=== PATIENT | female | born 1935 | race Caucasian/White ===

== ENCOUNTER 2017-05-31 18:36 | Emergency (ER) | payer MEDICARE, OTHER ==
[~2017-05-31] VITALS: Ht 160 cm; Wt 75.0 kg
[~2017-05-31 18:36] MED LIST: ASPI-99 PO; COUM5TAB PO; DIVA250T8 PO; HYDR-2768 PO; HYDR10TA16 PO; METO50CR PO; STOO100C PO; WARF7.5 PO; ZYRT10TA12 PO
[2017-05-31 18:57] VITALS: BP 209/101; PULSE 59; RESP 16; TEMP 97.8; O2SAT 97
[2017-05-31] MEDS ORDERED: SODIUM CHLOR 0.9% 1000 ML INJ 1,000 ML IV SCH (19:05)
[2017-05-31] MEDS ORDERED: METO50TA11 PO (19:06)
[2017-05-31] MEDS ORDERED: POTA-163 PO (19:06)
[2017-05-31] MEDS ORDERED: COUM7.5T PO (19:06)
[2017-05-31] MEDS ORDERED: FURO1TAB62 PO (19:06)
[2017-05-31] MEDS ORDERED: ASPI81CH CHEW (19:06)
[2017-05-31] MEDS ORDERED: SODIUM CHLORIDE 0.9% FLUSH 10 ML FLUSH IV FLUSH PRN (19:15)
[2017-05-31] MEDS ORDERED: ONDANSETRON HCL 4 MG/2 ML VIAL IVP ONE (19:15)
[2017-05-31 19:41] LABS: AUTOMATED NEUTROPHIL # 6.8 TH/MM3 (1.8-7.7); BASOPHIL % 0.5 % (0.0-2.0); EOSINOPHIL # 0.2 TH/MM3 (0-0.4); EOSINOPHIL % 2.1 % (0.0-4.0); HEMATOCRIT 41.2 % (35.0-46.0); HEMO FLAGS DIFF FINAL; LYMPH % 15.8 % (9.0-44.0); LYMPHOCYTE # 1.4 TH/MM3 (1.0-4.8); MEAN CELL VOLUME 89.2 FL (80.0-100.0); MEAN CORPUSCULAR HEMOGLOBIN 29.6 PG (27.0-34.0); MEAN CORPUSCULAR HGB CONC 33.2 % (32.0-36.0); NEUT % 75.6 % (16.0-70.0); PLATELET COUNT 169 TH/MM3 (150-450); RED BLOOD COUNT 4.62 MIL/MM3 (4.00-5.30); RED CELL DISTRIBUTION WIDTH 14.1 % (11.6-17.2)
[2017-05-31 19:49] LABS: APTT (PATIENT) 34.3 SEC (24.3-30.1); INTERNATIONAL NORMALIZED RATIO 2.8 RATIO; PROTHROMBIN TIME - PATIENT 32.7 SEC (9.8-11.6)
[2017-05-31 20:01] LABS: ALT (GPT) 31 U/L (10-53); ANION GAP 11 MEQ/L (5-15); AST (GOT) 30 U/L (15-37); BICARBONATE 25.3 MEQ/L (21.0-32.0); BLOOD UREA NITROGEN 15 MG/DL (7-18); CHLORIDE 108 MEQ/L (98-107); GLOMERULAR FILTRATION RATE 92 ML/MIN (>89); POTASSIUM 3.2 MEQ/L (3.5-5.1); SODIUM (NA) 144 MEQ/L (136-145)
[2017-05-31 20:05] LABS: ALKALINE PHOSPHATASE 68 U/L (45-117); TOTAL BILIRUBIN ADULT 0.6 MG/DL (0.2-1.0)
--- NOTE | 2017-05-31 20:08 | PD ---
HPI Chief Complaint: Dizziness Time Seen by Provider: 18:58 Travel History International Travel<30 days: No Contact w/Intl Traveler<30days: No Traveled to known affect area: No History of Present Illness HPI 81-year-old female with history of mechanical mitral heart valve, hypertension, here for evaluation of sudden onset dizziness. The patient reports that she was preparing dinner when she became dizzy at around 5:30 PM today. Dizziness worse with opening her eyes. She became extremely nauseous as well with few episodes of vomiting. She has not looked at her emesis and is unsure what it looks like. She denies headache. No chest pain or dyspnea. No abdominal pain. No paresthesias or motor deficits. No fevers or recent illness. Upon arrival to the emergency department the patient feels slightly improved, however she still feels dizzy when she opens her eyes. PFSH Past Medical History Cardiovascular Problems: Yes Cerebrovascular Accident: Yes Coronary Artery Disease: Yes Hypertension: Yes Past Surgical History Section: Yes Other Surgery: Yes (ARTIFICIAL MITRAL HEART VALVE, BACK SURGERY FOR HERNIATED DISCS) Social History Alcohol Use: No Tobacco Use: No Substance Use: No Allergies-Medications (Allergen,Severity, Reaction): Coded Allergies: morphine (Unverified Allergy, Severe, 05/31/17) Reported Meds & Prescriptions Reported Meds & Active Scripts Active Reported Aspirin 81 Mg Chew 81 Mg CHEW DAILY Potassium Chloride ER (Potassium Chloride) 20 Meq Tab 20 Meq PO BID Lasix (Furosemide) 20 Mg Tab 10 Mg PO BID Metoprolol Succinate ER 24 HR (Metoprolol Succinate) 50 Mg Tab 50 Mg PO DAILY Coumadin (Warfarin) 7.5 Mg Tab 7.5 Mg PO DAILY Review of Systems Except as stated in HPI: all other systems reviewed are Neg Physical Exam Narrative GENERAL: Well-developed, well-nourished, awake, keeps eyes closed, no apparent distress. SKIN: Focused skin assessment warm/slightly diaphoretic. HEAD: Atraumatic. Normocephalic. EYES: Pupils equal and round. No scleral icterus. No injection or drainage. ENT: Mucous membranes pink and moist. Bilateral tympanic membranes and external auditory canals are normal. NECK: Trachea midline. No JVD. No nuchal rigidity. CARDIOVASCULAR: Regular rate and rhythm. RESPIRATORY: No accessory muscle use. Clear to auscultation. Breath sounds equal bilaterally. GASTROINTESTINAL: Abdomen soft, non-tender, nondistended. MUSCULOSKELETAL: No obvious deformities. No clubbing. No cyanosis. No edema. NEUROLOGICAL: Awake and alert. No obvious cranial nerve deficits. Motor grossly within normal limits. Normal speech. No focal deficits. PSYCHIATRIC: Appropriate mood and affect; insight and judgment normal. Data Data Last Documented VS Vital Signs Date Time Temp Pulse Resp B/P (MAP) Pulse Ox O2 Delivery O2 Flow Rate FiO2 05/31/17 18:57 97.8 59 16 209/101 (137) 97 Orders Orders Complete Blood Count With Diff (05/31/17 19:05) Comprehensive Metabolic Panel (05/31/17 19:05) Prothrombin Time / Inr (Pt) (05/31/17 19:05) Act Partial Throm Time (Ptt) (05/31/17 19:05) Urinalysis - C+S If Indicated (05/31/17 19:05) Iv Access Insert/Monitor (05/31/17 19:05) Ecg Monitoring (05/31/17 19:05) Oximetry (05/31/17 19:05) Ondansetron Inj (Zofran Inj) (05/31/17 19:15) Sodium Chlor 0.9% 1000 Ml Inj (Ns 1000 M (05/31/17 19:05) Sodium Chloride 0.9% Flush (Ns Flush) (05/31/17 19:15) Electrocardiogram (05/31/17 19:05) Ckmb (Isoenzyme) Profile (05/31/17 19:05) Troponin I (05/31/17 19:05) Ct Brain W/O Iv Contrast(Rout) (05/31/17 ) Potassium Chloride (Kcl) (05/31/17 21:00) Labs Laboratory Tests Test 05/31/17 19:20 05/31/17 20:00 White Blood Count 9.0 TH/MM3 Red Blood Count 4.62 MIL/MM3 Hemoglobin 13.7 GM/DL Hematocrit 41.2 % Mean Corpuscular Volume 89.2 FL Mean Corpuscular Hemoglobin 29.6 PG Mean Corpuscular Hemoglobin Concent 33.2 % Red Cell Distribution Width 14.1 % Platelet Count 169 TH/MM3 Mean Platelet Volume 9.2 FL Neutrophils (%) (Auto) 75.6 % Lymphocytes (%) (Auto) 15.8 % Monocytes (%) (Auto) 6.0 % Eosinophils (%) (Auto) 2.1 % Basophils (%) (Auto) 0.5 % Neutrophils # (Auto) 6.8 TH/MM3 Lymphocytes # (Auto) 1.4 TH/MM3 Monocytes # (Auto) 0.5 TH/MM3 Eosinophils # (Auto) 0.2 TH/MM3 Basophils # (Auto) 0.0 TH/MM3 CBC Comment DIFF FINAL Differential Comment Prothrombin Time 32.7 SEC Prothromb Time International Ratio 2.8 RATIO Activated Partial Thromboplast Time 34.3 SEC Blood Urea Nitrogen 15 MG/DL Creatinine 0.62 MG/DL Random Glucose 120 MG/DL Total Protein 6.9 GM/DL Albumin 3.6 GM/DL Calcium Level 8.5 MG/DL Alkaline Phosphatase 68 U/L Aspartate Amino Transf (AST/SGOT) 30 U/L Alanine Aminotransferase (ALT/SGPT) 31 U/L Total Bilirubin 0.6 MG/DL Sodium Level 144 MEQ/L Potassium Level 3.2 MEQ/L Chloride Level 108 MEQ/L Carbon Dioxide Level 25.3 MEQ/L Anion Gap 11 MEQ/L Estimat Glomerular Filtration Rate 92 ML/MIN Total Creatine Kinase 59 U/L Troponin I 0.02 NG/ML Urine Color LIGHT-YELLOW Urine Turbidity HAZY Urine pH 7.5 Urine Specific [place] 1.014 Urine Protein NEG mg/dL Urine Glucose (UA) NEG mg/dL Urine Ketones 10 mg/dL Urine Occult Blood NEG Urine Nitrite NEG Urine Bilirubin NEG Urine Urobilinogen LESS THAN 2.0 MG/DL Urine Leukocyte Esterase NEG Urine RBC 2 /hpf Urine WBC 1 /hpf Urine Amorphous Sediment RARE Microscopic Urinalysis Comment CULT NOT INDICATED MDM Medical Decision Making Medical Screen Exam Complete: Yes Emergency Medical Condition: Yes Interpretation(s) EKG: A. fib, rate 65, minimal voltage criteria for LVH, slightly prolonged QT Differential Diagnosis Vertigo, intracranial abnormality, metabolic abnormality, UTI, anemia, dysrhythmia Narrative Course Initial vital signs show heart rate 59, blood pressure 209/101, pulse ox 97% on room air, oral temp of 97.8F. CBC is unremarkable. CMP is remarkable for potassium 3.2, otherwise unremarkable. Troponin is 0.02. INR is 2.8. UA is not suggestive of UTI. CT head: CONCLUSION: 1. No acute abnormality is seen. 2. 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 3. Suspected small vessel ischemic change in the white matter. Patient was given antiemetics and IV fluids and on reassessment she states she is feeling much better and would like to go home. I believe she is stable for discharge home with outpatient follow-up with her primary care physician this week. She was informed on when to return to the emergency department. She verbalizes understanding and agreement with plan. Diagnosis Primary Impression: Vertigo Additional Impressions: Nausea and vomiting Qualified Codes: R11.2 - Nausea with vomiting, unspecified Hypokalemia Referrals: Primary Care Physician 3 days Additional Instructions: Follow-up with your primary care physician this week. Return to the emergency department for worsening symptoms or any other concerns. Disposition: 01 DISCHARGE HOME Condition: Stable Rupert Lucia MD May 31, 2017 20:08
[2017-05-31 20:09] LABS: CREATINE KINASE 59 U/L (26-192)
--- NOTE | 2017-05-31 20:41 | RADRPT ---
EXAM DATE/TIME: 05/31/2017 19:25 [facility] COMPARISON: No previous studies available for comparison. INDICATIONS : Dizzy,vomited RADIATION DOSE: 56.35 CTDIvol (mGy) MEDICAL HISTORY : Cerebrovascular disease. Cardiovascular disease Hypertension. SURGICAL HISTORY : None. ENCOUNTER: Initial ACUITY: 1 day PAIN SCALE: 3/10 LOCATION: cranial TECHNIQUE: Multiple contiguous axial images were obtained of the head. Using automated exposure control and adj ustment of the mA and/or kV according to patient size, radiation dose was kept as low as reasonably a chievable to obtain optimal diagnostic quality images. DICOM format image data is available electro nically for review and comparison. FINDINGS: CEREBRUM: The ventricles and cortical sulci are widened. There is some encephalomalacia at the right posterior frontal lobe especially involving the white matter. There is diffuse decreased density in the periven tricular white matter likely reflecting small vessel ischemic change in the white matter. There is a small area of encephalomalacia at the posterior medial left parietal lobe. No evidence of midline sh ift, mass lesion, hemorrhage or acute infarction. No extra-axial fluid collections are seen. POSTERIOR FOSSA: There is an area of encephalomalacia at the medial and to a lesser degree lateral left cerebellar hem isphere. Otherwise, the cerebellum and brainstem are intact. The 4th ventricle is midline. The cere bellopontine angle is unremarkable. EXTRACRANIAL: The visualized portion of the orbits is intact. SKULL: The calvaria is intact. No evidence of skull fracture. CONCLUSION: 1. No acute abnormality is seen. 2. 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 3. Suspected small vessel ischemic change in the white matter. Eze Mneard MD on May 31, 2017 at 20:36 Board Certified Radiologist. This report was verified electronically.
[2017-05-31 20:57] LABS: BLOOD, URINE NEG (NEG); COMMENT (UR) CULT NOT INDICATED; CULTURE IF INDICATED CULT NOT INDICATED; GLUCOSE,URINE NEG (NEG); KETONE, URINE 10 mg/dL (NEG); NITRITE,URINE NEG (NEG); PH, URINE 7.5 (5.0-8.5); URINE COLOR LIGHT-YELLOW (YELLW/STRAW)
[2017-05-31] MEDS ORDERED: POTASSIUM CHLORIDE 20 MEQ CONTROLLED RELEASE TAB PO ONE (21:00)
[2017-05-31 22:02] VITALS: BP 165/77
--- NOTE | 2017-06-02 00:57 | EKG ---
Date Performed: 05/31/2017 Time Performed: 20:25:12 PTAGE: 81 years EKG: ATRIAL FIBRILLATION MINIMAL VOLTAGE CRITERIA FOR LVH, CONSIDER NORMAL VARIANT MINIMAL ST DE PRESSION PROLONGED QT INTERVAL ABNORMAL ECG NO PREVIOUS TRACING DOCTOR: Ramon Burden Interpretating Date/Time 06/02/2017 00:55:59
== END 2017-05-31 22:00 | disposition home or self-care (01) ==
LOC: NEPE 18:36
DX: R42 Dizziness and giddiness (principal); R11.2 Nausea with vomiting, unspecified; E87.6 Hypokalemia; I45.81 Long QT syndrome; I10 Essential (primary) hypertension; I25.10 Atherosclerotic heart disease of native coronary artery without angina pectoris; Z86.73 Personal history of transient ischemic attack (TIA), and cerebral infarction without residual deficits; Z79.82 Long term (current) use of aspirin; Z79.01 Long term (current) use of anticoagulants
CPT/HCPCS: 70450; 80053; 81001; 82550; 84484; 85025; 85610; 85730; 93005; 99285; J7030